=== PATIENT | female | born 1935 | race Caucasian/White ===

== ENCOUNTER 2019-06-21 22:11 | Inpatient (IN) ==
[2019-06-22] MEDS ORDERED: Ondansetron ODT 4 MG TAB.RAPDIS SL PRN (03:27)
[2019-06-22] MEDS ORDERED: Naloxone 0.4 MG/ML INJ IVP PRN (03:27)
[2019-06-22] MEDS ORDERED: 0.9 % Sodium Chloride 500 ML IVC SCH (03:45)
[2019-06-22 04:15] LABS: Hematocrit 33.8 % (35.3-44.9); Hemoglobin 11.4 g/dL (11.5-15.4); Mean Corpuscular HGB Conc 33.7 g/dL (31.6-35.5); Mean Corpuscular Hemoglobin 27.7 pg (28.0-33.3); Mean Corpuscular Volume 82.2 fL (83.0-100.0); Mean Platelet Volume 11.2 fL (9.4-12.4); Nucleated Red Blood Cells 0.2 /100 WBC (0); Platelet Count 251 K/mcL (140-400); Red Blood Count 4.11 M/mcL (3.82-4.97); Red Cell Distribution Width 14.5 % (11.5-14.5); White Blood Count 18.6 K/mcL (4.3-11.1)
[2019-06-22 04:37] LABS: Albumin 2.7 g/dL (3.5-5.7); Albumin/Globulin Ratio 0.8 (1.1-2.2); Calcium 7.7 mg/dL (8.6-10.3); Globulin 3.6 g/dL (2.4-3.5); Magnesium 2.2 mg/dL (1.6-2.6); Phosphorous 4.7 mg/dL (2.7-4.5); Potassium 4.4 mEq/L (3.5-5.1); Total Protein 6.3 g/dL (6.4-8.9)
[2019-06-22 04:49] LABS: C-Reactive Protein > 300 mg/L (Less than 10); Creatine Kinase 2271 Units/L (30-223)
[2019-06-22 04:54] LABS: Thyroid Stimulating Hormone 0.563 mcIU/mL (0.340-5.600)
[2019-06-22 05:23] LABS: Lymphocytes # 1.1 K/mcL (0.6-4.6); Neutrophils # 17.5 K/mcL (1.6-8.9); Platelet Estimate Normal (Normal)
[2019-06-22] MEDS ORDERED: Cefepime HCl 2,000 MG in Water for inj. (sterile) 20 ML IVP SCH (06:00)
[2019-06-22 09:40] LABS: Sodium, Urine 15.4 mEq/L
[2019-06-22 09:59] LABS: Bilirubin,Urine Small (Negative); Blood,Urine Large (Negative); Clarity,Urine Cloudy (Clear); Color,Urine Yellow (Yellow); Glucose,Urine (UA) Normal (Normal); Ketones,Urine Negative (Negative); Leukocyte Esterase,Urine Moderate (Negative); Nitrite,Urine Negative (Negative); Protein,Urine 100 mg/dL (Neg-Trace); Specific Gravity,Urine 1.025 (1.010-1.025); Urobilinogen,Urine Normal (Normal)
[2019-06-22 10:00] LABS: Hematocrit 34.6 % (35.3-44.9); Hemoglobin 11.2 g/dL (11.5-15.4); Mean Corpuscular HGB Conc 32.4 g/dL (31.6-35.5); Mean Corpuscular Hemoglobin 27.7 pg (28.0-33.3); Mean Corpuscular Volume 85.6 fL (83.0-100.0); Mean Platelet Volume 11.3 fL (9.4-12.4); Platelet Count 233 K/mcL (140-400); Red Blood Count 4.04 M/mcL (3.82-4.97); Red Cell Distribution Width 14.2 % (11.5-14.5); White Blood Count 15.9 K/mcL (4.3-11.1)
[2019-06-22 10:01] LABS: Bacteria,Urine None Seen per hpf (None-Few); Hyaline Casts,Urine Few per lpf (None-Few); Squamous Epithelial Cell,Urine Many per lpf (None-Few); WBC,Urine 50-100 per hpf (0-3)
[2019-06-22 10:29] LABS: Monocytes # 0.6 K/mcL (0.0-1.3); Neutrophils # 14.3 K/mcL (1.6-8.9); Platelet Estimate Normal (Normal)
[2019-06-22 10:30] LABS: Albumin 2.6 g/dL (3.5-5.7); Albumin/Globulin Ratio 0.7 (1.1-2.2); Bilirubin,Total 1.9 mg/dL (0.3-1.0); Calcium 7.7 mg/dL (8.6-10.3); Globulin 3.6 g/dL (2.4-3.5); Magnesium 2.2 mg/dL (1.6-2.6); Phosphorous 5.1 mg/dL (2.7-4.5); Potassium 4.8 mEq/L (3.5-5.1); Total Protein 6.2 g/dL (6.4-8.9); Troponin I 0.05 ng/mL (< 0.04)
[2019-06-22 11:30] LABS: INR > 29.6; Prothrombin Time > 320.0 Seconds (9.4-12.1)
[2019-06-22] MEDS ORDERED: *HR* Phytonadione 10 MG/ML AMPUL SQ ONE (12:24)
[2019-06-22] MEDS: 0.9 % Sodium Chloride 1,000 ML IVC SCH (13:21)
[2019-06-22] MEDS: Morphine Sulfate 2 MG/ML SYRINGE IVP PRN ×2 (14:44→18:51)
[2019-06-23] MEDS: 0.9 % Sodium Chloride 1,000 ML IVC SCH ×2 (01:41→11:45)
[2019-06-23] MEDS: Morphine Sulfate 2 MG/ML SYRINGE IVP PRN ×4 (01:41→23:08)
[2019-06-23] MEDS: Cefepime HCl 1,000 MG in Water for inj. (sterile) 10 ML IVP SCH ×2 (05:35→08:24)
[2019-06-23 06:10] LABS: Hematocrit 30.8 % (35.3-44.9); Hemoglobin 10.4 g/dL (11.5-15.4); Mean Corpuscular HGB Conc 33.8 g/dL (31.6-35.5); Mean Corpuscular Hemoglobin 27.8 pg (28.0-33.3); Mean Corpuscular Volume 82.4 fL (83.0-100.0); Mean Platelet Volume 11.4 fL (9.4-12.4); Nucleated Red Blood Cells 0.2 /100 WBC (0); Platelet Count 232 K/mcL (140-400); Red Blood Count 3.74 M/mcL (3.82-4.97); Red Cell Distribution Width 14.6 % (11.5-14.5); White Blood Count 16.3 K/mcL (4.3-11.1)
[2019-06-23 06:12] LABS: INR 2.9; Prothrombin Time 32.8 Seconds (9.4-12.1)
[2019-06-23 06:34] LABS: Albumin 2.3 g/dL (3.5-5.7); Albumin/Globulin Ratio 0.7 (1.1-2.2); Bilirubin,Total 1.3 mg/dL (0.3-1.0); Calcium 7.4 mg/dL (8.6-10.3); Globulin 3.5 g/dL (2.4-3.5); Magnesium 2.4 mg/dL (1.6-2.6); Phosphorous 4.5 mg/dL (2.7-4.5); Potassium 4.5 mEq/L (3.5-5.1); Total Protein 5.8 g/dL (6.4-8.9)
[2019-06-23 06:49] LABS: Lymphocytes # 0.7 K/mcL (0.6-4.6); Neutrophils # 14.7 K/mcL (1.6-8.9)
[2019-06-23 06:50] LABS: Platelet Estimate Normal (Normal)
[2019-06-23] MEDS ORDERED: Perflutren Lipid Microsphere 1.3 ML in 0.9 % Sodium Chloride 8.7 ML IVP ONE (15:26)
[2019-06-24] MEDS: Morphine Sulfate 2 MG/ML SYRINGE IVP PRN (04:09)
[2019-06-24] MEDS: 0.9 % Sodium Chloride 1,000 ML IVC SCH ×2 (04:13→05:38)
[2019-06-24 04:29] LABS: Hematocrit 31.4 % (35.3-44.9); Hemoglobin 10.2 g/dL (11.5-15.4); Mean Corpuscular HGB Conc 32.5 g/dL (31.6-35.5); Mean Corpuscular Hemoglobin 27.6 pg (28.0-33.3); Mean Corpuscular Volume 85.1 fL (83.0-100.0); Mean Platelet Volume 11.3 fL (9.4-12.4); Nucleated Red Blood Cells 0.3 /100 WBC (0); Platelet Count 236 K/mcL (140-400); Red Blood Count 3.69 M/mcL (3.82-4.97); Red Cell Distribution Width 14.6 % (11.5-14.5); White Blood Count 19.8 K/mcL (4.3-11.1)
[2019-06-24 04:33] LABS: INR 1.2
[2019-06-24 04:46] LABS: Albumin 2.5 g/dL (3.5-5.7); Albumin/Globulin Ratio 0.7 (1.1-2.2); Bilirubin,Total 1.2 mg/dL (0.3-1.0); Calcium 8.1 mg/dL (8.6-10.3); Globulin 3.5 g/dL (2.4-3.5); Magnesium 2.3 mg/dL (1.6-2.6); Potassium 4.3 mEq/L (3.5-5.1)
[2019-06-24 05:28] LABS: Neutrophils # 17.8 K/mcL (1.6-8.9)
[2019-06-24 05:29] LABS: Platelet Estimate Normal (Normal); Toxic Granulation Present (Not Present)
[2019-06-24] MEDS ORDERED: Aminoglycoside Consult 1 EACH MC ONE (08:41)
[2019-06-24] MEDS ORDERED: Ampicillin/Sulbactam 3,000 MG in 0.9 % Sodium Chloride Mini Bag 100 ML IVPB SCH (12:00)
[2019-06-24] MEDS ORDERED: Cefepime HCl 1,000 MG in Water for inj. (sterile) 10 ML IVP SCH (16:00)
[2019-06-24] MEDS: *HR* HYDROcodone/Acet 5/325 mg TABLET PO PRN (17:18)
[2019-06-24] MEDS ORDERED: *HR* Warfarin 3 MG TABLET PO ONE (18:00)
[2019-06-24] MEDS ORDERED: Warfarin perPT PO PRN (18:00)
[2019-06-24] MEDS: Ampicillin/Sulbactam 3,000 MG in 0.9 % Sodium Chloride Mini Bag 100 ML IVPB SCH (23:57)
[2019-06-25 07:02] LABS: Hematocrit 31.3 % (35.3-44.9); Mean Corpuscular HGB Conc 31.9 g/dL (31.6-35.5); Mean Corpuscular Hemoglobin 27.5 pg (28.0-33.3); Mean Corpuscular Volume 86.2 fL (83.0-100.0); Mean Platelet Volume 11.2 fL (9.4-12.4); Nucleated Red Blood Cells 0.1 /100 WBC (0); Platelet Count 261 K/mcL (140-400); Red Blood Count 3.63 M/mcL (3.82-4.97); Red Cell Distribution Width 14.6 % (11.5-14.5); White Blood Count 23.9 K/mcL (4.3-11.1)
[2019-06-25 07:33] LABS: Calcium 9.2 mg/dL (8.6-10.3); Potassium 3.8 mEq/L (3.5-5.1)
[2019-06-25 07:48] LABS: INR 1.4; Prothrombin Time 15.5 Seconds (9.4-12.1)
[2019-06-25 08:53] LABS: Anisocytosis 1+ (Not Present); Monocytes # 1.4 K/mcL (0.0-1.3); Neutrophils # 20.6 K/mcL (1.6-8.9); Platelet Estimate Normal (Normal)
[2019-06-25] MEDS: *HR* HYDROcodone/Acet 5/325 mg TABLET PO PRN ×2 (09:16→20:23)
[2019-06-25] MEDS: Ampicillin/Sulbactam 3,000 MG in 0.9 % Sodium Chloride Mini Bag 100 ML IVPB SCH (11:50)
[2019-06-25 17:26] LABS: Albumin 2.4 g/dL (3.5-5.7); Albumin/Globulin Ratio 0.6 (1.1-2.2); Bilirubin,Direct 0.5 mg/dL (0.0-0.2); Bilirubin,Indirect 0.6 mg/dL (0.0-1.0); Bilirubin,Total 1.1 mg/dL (0.3-1.0); Globulin 3.7 g/dL (2.4-3.5); Total Protein 6.1 g/dL (6.4-8.9)
[2019-06-25] MEDS ORDERED: *HR* Warfarin 3 MG TABLET PO ONE (18:00)
[2019-06-26] MEDS: *HR* HYDROcodone/Acet 5/325 mg TABLET PO PRN ×2 (04:42→20:36)
[2019-06-26] MEDS: Ampicillin/Sulbactam 3,000 MG in 0.9 % Sodium Chloride Mini Bag 100 ML IVPB SCH (05:09)
[2019-06-26 07:23] LABS: Hematocrit 29.9 % (35.3-44.9); Mean Corpuscular HGB Conc 33.4 g/dL (31.6-35.5); Mean Corpuscular Hemoglobin 27.6 pg (28.0-33.3); Mean Corpuscular Volume 82.6 fL (83.0-100.0); Mean Platelet Volume 11.4 fL (9.4-12.4); Platelet Count 249 K/mcL (140-400); Red Blood Count 3.62 M/mcL (3.82-4.97); Red Cell Distribution Width 14.7 % (11.5-14.5); White Blood Count 22.4 K/mcL (4.3-11.1)
[2019-06-26 07:27] LABS: INR 1.8; Prothrombin Time 20.8 Seconds (9.4-12.1)
[2019-06-26 08:05] LABS: Lymphocytes # 1.3 K/mcL (0.6-4.6); Monocytes # 0.5 K/mcL (0.0-1.3); Neutrophils # 19.3 K/mcL (1.6-8.9); Platelet Estimate Normal (Normal); Toxic Granulation Present (Not Present)
[2019-06-26 08:21] LABS: Alanine Aminotransferase 21 Units/L (7-52); Albumin 2.2 g/dL (3.5-5.7); Albumin/Globulin Ratio 0.6 (1.1-2.2); Alkaline Phosphatase 130 Units/L (34-104); Aspartate Amino Transferase 36 Units/L (13-39); BUN/Creatinine Ratio 44 (6-26); Blood Urea Nitrogen 45 mg/dL (8-23); Carbon Dioxide 24 mEq/L (23-29); Chloride 102 mEq/L (98-107); Globulin 3.5 g/dL (2.4-3.5); Glucose 121 mg/dL (70-105); Osmolality,Calculated 291 (280-300); Potassium 4.1 mEq/L (3.5-5.1); Sodium 134 mEq/L (136-145); Total Protein 5.7 g/dL (6.4-8.9); eGFR For African Americans > 60 (> 60); eGFR For Non-African Americans 51 (> 60)
[2019-06-26] MEDS ORDERED: *HR* Propofol 200 MG/20 ML VIAL IVP ONE (11:36)
[2019-06-26] MEDS ORDERED: *HR* FentaNYL (PF) 100 MCG/2 ML VIAL ONE (11:36)
[2019-06-26] MEDS ORDERED: Lidocaine -MPF 2% 2 ML VIAL ONE (11:37)
[2019-06-26] MEDS ORDERED: *HR* Succinylcholine 200 MG/10 ML VIAL IVP ONE (11:37)
[2019-06-26] MEDS ORDERED: Dexamethasone 4 MG/ML VIAL ONE (12:22)
[2019-06-26] MEDS ORDERED: *HR* Rocuronium Bromide 50 MG/5 ML VIAL ONE (12:22)
[2019-06-26] MEDS ORDERED: Ondansetron 4 MG/2 ML VIAL ONE (12:22)
[2019-06-26] MEDS ORDERED: Indomethacin 50 MG SUPP.RECT RC ONE (12:34)
[2019-06-26] MEDS ORDERED: EPHEDrine 50 MG/ML VIAL ONE (12:35)
[2019-06-26] MEDS: cefTRIAXone 2,000 MG in 0.9 % Sodium Chloride Mini Bag 100 ML IVPB SCH (15:33)
[2019-06-26] MEDS ORDERED: Ampicillin/Sulbactam 3,000 MG in 0.9 % Sodium Chloride Mini Bag 100 ML IVPB SCH (17:00)
[2019-06-26] MEDS ORDERED: *HR* Warfarin 2 MG TABLET PO ONE (18:00)
[2019-06-26] MEDS: Doxycycline 100 MG CAPSULE PO SCH (20:34)
[2019-06-27 02:29] LABS: Prothrombin Time 23.2 Seconds (9.4-12.1)
[2019-06-27 03:56] LABS: Basophils # 0.1 K/mcL (0.0-0.2); Basophils % 0.6 %; Hematocrit 30.7 % (35.3-44.9); Hemoglobin 9.9 g/dL (11.5-15.4); Immature Granulocytes % 11.2 % (0-4); Lymphocytes # 0.8 K/mcL (0.6-4.6); Lymphocytes % 3.7 %; Mean Corpuscular HGB Conc 32.2 g/dL (31.6-35.5); Mean Corpuscular Hemoglobin 27.4 pg (28.0-33.3); Mean Platelet Volume 11.4 fL (9.4-12.4); Monocytes # 0.6 K/mcL (0.0-1.3); Neutrophils # 16.8 K/mcL (1.6-8.9); Platelet Count 227 K/mcL (140-400); Red Blood Count 3.61 M/mcL (3.82-4.97); Red Cell Distribution Width 14.8 % (11.5-14.5); Segmented Neutrophils % 81.5 %; White Blood Count 20.6 K/mcL (4.3-11.1)
[2019-06-27 04:37] LABS: Platelet Estimate Normal (Normal)
[2019-06-27] MEDS: *HR* HYDROcodone/Acet 5/325 mg TABLET PO PRN ×2 (05:29→14:20)
[2019-06-27] MEDS: Doxycycline 100 MG CAPSULE PO SCH ×2 (09:40→20:35)
[2019-06-27] MEDS: cefTRIAXone 2,000 MG in 0.9 % Sodium Chloride Mini Bag 100 ML IVPB SCH (11:02)
[2019-06-27] MEDS: carvediloL 6.25 MG TABLET PO SCH (17:11)
[2019-06-27] MEDS ORDERED: *HR* Warfarin 3 MG TABLET PO ONE (18:00)
[2019-06-28 09:06] LABS: Hematocrit 34.4 % (35.3-44.9); Hemoglobin 11.1 g/dL (11.5-15.4); Mean Corpuscular HGB Conc 32.3 g/dL (31.6-35.5); Mean Corpuscular Hemoglobin 27.3 pg (28.0-33.3); Mean Corpuscular Volume 84.7 fL (83.0-100.0); Mean Platelet Volume 11.5 fL (9.4-12.4); Platelet Count 269 K/mcL (140-400); Red Blood Count 4.06 M/mcL (3.82-4.97); Red Cell Distribution Width 14.7 % (11.5-14.5); White Blood Count 23.4 K/mcL (4.3-11.1)
[2019-06-28 09:14] LABS: INR 2.2; Prothrombin Time 25.5 Seconds (9.4-12.1)
[2019-06-28 09:35] LABS: Lymphocytes # 1.4 K/mcL (0.6-4.6); Monocytes # 0.9 K/mcL (0.0-1.3); Neutrophils # 20.6 K/mcL (1.6-8.9)
[2019-06-28 09:37] LABS: Platelet Estimate Normal (Normal); Smudge Cells Present (Not Present); Toxic Granulation Present (Not Present)
[2019-06-28] MEDS ORDERED: CefTRIAXone 2,000 MG VIAL ONE (10:19)
[2019-06-28] MEDS: carvediloL 6.25 MG TABLET PO SCH ×2 (10:31→18:49)
[2019-06-28] MEDS: cefTRIAXone 2,000 MG in 0.9 % Sodium Chloride Mini Bag 100 ML IVPB SCH (10:31)
[2019-06-28] MEDS: *HR* HYDROcodone/Acet 5/325 mg TABLET PO PRN ×2 (10:31→15:03)
[2019-06-28] MEDS: Doxycycline 100 MG CAPSULE PO SCH ×2 (10:31→21:43)
[2019-06-28 12:05] LABS: Bilirubin,Urine Negative (Negative); Blood,Urine Negative (Negative); Clarity,Urine Cloudy (Clear); Color,Urine Dark Yellow (Yellow); Glucose,Urine (UA) Normal (Normal); Ketones,Urine Negative (Negative); Leukocyte Esterase,Urine Small (Negative); Nitrite,Urine Negative (Negative); PH,Urine 5.5 pH Units (5.0-8.0); Protein,Urine 30 mg/dL (Neg-Trace); Urobilinogen,Urine Normal (Normal)
[2019-06-28 12:08] LABS: Bacteria,Urine None Seen per hpf (None-Few); Squamous Epithelial Cell,Urine Many per lpf (None-Few)
[2019-06-28] MEDS ORDERED: Ondansetron 4 MG/2 ML VIAL IVP PRN (13:08)
[2019-06-28] MEDS ORDERED: *HR* Promethazine 25 MG/ML VIAL IVP PRN (13:09)
[2019-06-28] MEDS ORDERED: *HR* Warfarin 1 MG TABLET PO ONE (18:00)
[2019-06-28] MEDS: Pantoprazole 40 MG VIAL IVP SCH (21:43)
[2019-06-29 03:09] LABS: Hematocrit 33.8 % (35.3-44.9); Mean Corpuscular HGB Conc 32.5 g/dL (31.6-35.5); Mean Corpuscular Hemoglobin 27.4 pg (28.0-33.3); Mean Corpuscular Volume 84.1 fL (83.0-100.0); Mean Platelet Volume 11.6 fL (9.4-12.4); Nucleated Red Blood Cells 0.1 /100 WBC (0); Platelet Count 245 K/mcL (140-400); Red Blood Count 4.02 M/mcL (3.82-4.97); Red Cell Distribution Width 14.7 % (11.5-14.5); White Blood Count 23.3 K/mcL (4.3-11.1)
[2019-06-29 03:16] LABS: INR 2.3; Prothrombin Time 26.3 Seconds (9.4-12.1)
[2019-06-29 03:31] LABS: BUN/Creatinine Ratio 51 (6-26); Blood Urea Nitrogen 53 mg/dL (8-23); C-Reactive Protein 87 mg/L (Less than 10); Calcium 9.5 mg/dL (8.6-10.3); Carbon Dioxide 22 mEq/L (23-29); Chloride 104 mEq/L (98-107); Glucose 140 mg/dL (70-105); Magnesium 1.7 mg/dL (1.6-2.6); Osmolality,Calculated 297 (280-300); Potassium 4.7 mEq/L (3.5-5.1); Sodium 135 mEq/L (136-145); eGFR For African Americans > 60 (> 60); eGFR For Non-African Americans 51 (> 60)
[2019-06-29 03:35] LABS: Anisocytosis 1+ (Not Present); Lymphocytes # 0.9 K/mcL (0.6-4.6); Monocytes # 0.5 K/mcL (0.0-1.3)
[2019-06-29 03:36] LABS: Platelet Estimate Normal (Normal)
[2019-06-29] MEDS: Pantoprazole 40 MG VIAL IVP SCH (05:38)
[2019-06-29] MEDS: Doxycycline 100 MG CAPSULE PO SCH ×2 (08:00→20:49)
[2019-06-29] MEDS: carvediloL 6.25 MG TABLET PO SCH ×2 (08:00→19:46)
[2019-06-29] MEDS ORDERED: Milk and Molasses Enema 200 ML RC ONE (08:14)
[2019-06-29] MEDS: cefTRIAXone 2,000 MG in 0.9 % Sodium Chloride Mini Bag 100 ML IVPB SCH (12:23)
[2019-06-29] MEDS: 0.9 % Sodium Chloride 1,000 ML IVC SCH (12:24)
[2019-06-29] MEDS ORDERED: *HR* Warfarin 1 MG TABLET PO ONE (18:00)
[2019-06-30] MEDS: Piperacillin/Tazobactam 3.375 GM in 0.9 % Sodium Chloride Mini Bag 100 ML IVPB SCH ×4 (02:00→23:39)
[2019-06-30 04:59] LABS: Hematocrit 28.8 % (35.3-44.9); Mean Corpuscular HGB Conc 31.3 g/dL (31.6-35.5); Mean Corpuscular Hemoglobin 27.5 pg (28.0-33.3); Mean Corpuscular Volume 88.1 fL (83.0-100.0); Mean Platelet Volume 12.1 fL (9.4-12.4); Nucleated Red Blood Cells 0.1 /100 WBC (0); Platelet Count 182 K/mcL (140-400); Red Blood Count 3.27 M/mcL (3.82-4.97); Red Cell Distribution Width 14.8 % (11.5-14.5); White Blood Count 17.8 K/mcL (4.3-11.1)
[2019-06-30 05:06] LABS: INR 2.9; Prothrombin Time 32.9 Seconds (9.4-12.1)
[2019-06-30 05:19] LABS: Albumin 2.2 g/dL (3.5-5.7); Albumin/Globulin Ratio 0.7 (1.1-2.2); Bilirubin,Total 0.5 mg/dL (0.3-1.0); Calcium 8.5 mg/dL (8.6-10.3); Potassium 4.2 mEq/L (3.5-5.1); Total Protein 5.2 g/dL (6.4-8.9)
[2019-06-30 05:42] LABS: Lymphocytes # 0.4 K/mcL (0.6-4.6); Monocytes # 1.4 K/mcL (0.0-1.3); Neutrophils # 15.3 K/mcL (1.6-8.9); Platelet Estimate Normal (Normal); Toxic Granulation Present (Not Present)
[2019-06-30] MEDS: Pantoprazole 40 MG VIAL IVP SCH ×2 (07:46→17:42)
[2019-06-30] MEDS: 0.9 % Sodium Chloride 1,000 ML IVC SCH (07:47)
[2019-06-30] MEDS: carvediloL 6.25 MG TABLET PO SCH ×2 (08:42→17:42)
[2019-06-30] MEDS: Doxycycline 100 MG CAPSULE PO SCH ×2 (08:42→21:57)
[2019-06-30] MEDS ORDERED: Morphine Sulfate 2 MG/ML SYRINGE IVP ONE (12:02)
[2019-07-01 05:48] LABS: Basophils % 0.2 %; Eosinophils # 0.1 K/mcL (0.0-0.6); Eosinophils % 0.6 %; Hematocrit 26.4 % (35.3-44.9); Hemoglobin 8.2 g/dL (11.5-15.4); Immature Granulocytes % 4.5 % (0-4); Lymphocytes # 0.8 K/mcL (0.6-4.6); Lymphocytes % 5.3 %; Mean Corpuscular HGB Conc 31.1 g/dL (31.6-35.5); Mean Corpuscular Hemoglobin 27.8 pg (28.0-33.3); Mean Corpuscular Volume 89.5 fL (83.0-100.0); Mean Platelet Volume 12.2 fL (9.4-12.4); Monocytes # 0.7 K/mcL (0.0-1.3); Monocytes % 4.4 %; Neutrophils # 12.8 K/mcL (1.6-8.9); Platelet Count 158 K/mcL (140-400); Red Blood Count 2.95 M/mcL (3.82-4.97); Red Cell Distribution Width 14.9 % (11.5-14.5)
[2019-07-01 05:52] LABS: INR 3.3; Prothrombin Time 37.3 Seconds (9.4-12.1)
[2019-07-01 06:11] LABS: Alanine Aminotransferase 18 Units/L (7-52); Albumin 2.1 g/dL (3.5-5.7); Albumin/Globulin Ratio 0.8 (1.1-2.2); Alkaline Phosphatase 139 Units/L (34-104); Aspartate Amino Transferase 24 Units/L (13-39); BUN/Creatinine Ratio 46 (6-26); Bilirubin,Total 0.6 mg/dL (0.3-1.0); Blood Urea Nitrogen 49 mg/dL (8-23); Carbon Dioxide 23 mEq/L (23-29); Chloride 110 mEq/L (98-107); Globulin 2.7 g/dL (2.4-3.5); Glucose 122 mg/dL (70-105); Magnesium 1.6 mg/dL (1.6-2.6); Osmolality,Calculated 300 (280-300); Potassium 3.9 mEq/L (3.5-5.1); Sodium 138 mEq/L (136-145); Total Protein 4.8 g/dL (6.4-8.9); eGFR For African Americans > 60 (> 60); eGFR For Non-African Americans 50 (> 60)
[2019-07-01] MEDS: Pantoprazole 40 MG VIAL IVP SCH ×2 (06:20→17:50)
[2019-07-01] MEDS: Doxycycline 100 MG CAPSULE PO SCH ×2 (08:59→20:28)
[2019-07-01] MEDS: Piperacillin/Tazobactam 3.375 GM in 0.9 % Sodium Chloride Mini Bag 100 ML IVPB SCH ×3 (08:59→23:19)
[2019-07-01] MEDS: carvediloL 6.25 MG TABLET PO SCH ×2 (08:59→17:50)
[2019-07-01] MEDS: *HR* HYDROcodone/Acet 5/325 mg TABLET PO PRN ×2 (13:22→20:28)
[2019-07-02] MEDS: *HR* HYDROcodone/Acet 5/325 mg TABLET PO PRN ×3 (01:25→21:12)
[2019-07-02 04:27] LABS: Calcium 8.1 mg/dL (8.6-10.3); Potassium 4.3 mEq/L (3.5-5.1)
[2019-07-02 04:46] LABS: Basophils % 0.1 %; Eosinophils # 0.1 K/mcL (0.0-0.6); Eosinophils % 0.5 %; Hematocrit 27.1 % (35.3-44.9); Hemoglobin 8.6 g/dL (11.5-15.4); Lymphocytes # 0.7 K/mcL (0.6-4.6); Lymphocytes % 5.2 %; Mean Corpuscular HGB Conc 31.7 g/dL (31.6-35.5); Mean Corpuscular Hemoglobin 28.7 pg (28.0-33.3); Mean Corpuscular Volume 90.3 fL (83.0-100.0); Mean Platelet Volume 11.5 fL (9.4-12.4); Monocytes # 0.7 K/mcL (0.0-1.3); Monocytes % 5.4 %; Neutrophils # 11.6 K/mcL (1.6-8.9); Platelet Count 145 K/mcL (140-400); Red Cell Distribution Width 15.3 % (11.5-14.5); Segmented Neutrophils % 86.8 %; White Blood Count 13.4 K/mcL (4.3-11.1)
[2019-07-02 04:49] LABS: INR 3.7; Prothrombin Time 41.7 Seconds (9.4-12.1)
[2019-07-02] MEDS: Pantoprazole 40 MG VIAL IVP SCH (05:19)
[2019-07-02] MEDS: Piperacillin/Tazobactam 3.375 GM in 0.9 % Sodium Chloride Mini Bag 100 ML IVPB SCH ×3 (07:32→23:46)
[2019-07-02] MEDS: Doxycycline 100 MG CAPSULE PO SCH ×2 (07:33→21:12)
[2019-07-02] MEDS: carvediloL 6.25 MG TABLET PO SCH ×2 (07:33→16:48)
[2019-07-03] MEDS: *HR* HYDROcodone/Acet 5/325 mg TABLET PO PRN ×2 (01:14→13:55)
[2019-07-03 06:05] LABS: Basophils % 0.1 %; Eosinophils # 0.1 K/mcL (0.0-0.6); Eosinophils % 0.4 %; Hematocrit 28.2 % (35.3-44.9); Hemoglobin 8.7 g/dL (11.5-15.4); Immature Granulocytes % 0.9 % (0-4); Lymphocytes # 0.7 K/mcL (0.6-4.6); Lymphocytes % 4.8 %; Mean Corpuscular HGB Conc 30.9 g/dL (31.6-35.5); Mean Corpuscular Volume 90.7 fL (83.0-100.0); Mean Platelet Volume 12.1 fL (9.4-12.4); Monocytes # 0.5 K/mcL (0.0-1.3); Monocytes % 3.6 %; Neutrophils # 13.4 K/mcL (1.6-8.9); Platelet Count 141 K/mcL (140-400); Red Blood Count 3.11 M/mcL (3.82-4.97); Red Cell Distribution Width 15.4 % (11.5-14.5); Segmented Neutrophils % 90.2 %; White Blood Count 14.9 K/mcL (4.3-11.1)
[2019-07-03 06:10] LABS: INR 2.8; Prothrombin Time 32.3 Seconds (9.4-12.1)
[2019-07-03 06:29] LABS: Calcium 8.2 mg/dL (8.6-10.3); Potassium 4.6 mEq/L (3.5-5.1)
[2019-07-03] MEDS: Piperacillin/Tazobactam 3.375 GM in 0.9 % Sodium Chloride Mini Bag 100 ML IVPB SCH (09:04)
[2019-07-03] MEDS: Doxycycline 100 MG CAPSULE PO SCH (09:04)
[2019-07-03] MEDS: carvediloL 6.25 MG TABLET PO SCH (09:04)
[2019-07-03 15:20] VITALS: BP 113/61
[2019-07-03] MEDS ORDERED: *HR* Warfarin 1 MG TABLET PO ONE (18:00)
== END 2019-07-03 17:32 | DRG 871 ==
LOC: CDU → SUATTDRO 06-22 13:33 → 3ANU 06-23 15:42
PROVIDERS: ADMIT Family Medicine; ATTEND Internal Medicine

== ENCOUNTER 2019-07-16 14:12 | Inpatient (IN) ==
[2019-07-16] MEDS ORDERED: Naloxone 0.4 MG/ML INJ IVP PRN (17:02)
[2019-07-16] MEDS ORDERED: Acetaminophen 325 MG TABLET PO PRN (18:08)
[2019-07-16] MEDS ORDERED: Albuterol 2.5 MG/3 ML NEBULIZER IH PRN (18:28)
[2019-07-16] MEDS: Ipratropium/Albuterol Neb 3 ML IH SCH ×2 (18:32→22:34)
[2019-07-16] MEDS: *HR* OxyCODONE Immed Rel 5 MG TABLET PO PRN ×2 (19:17→23:13)
[2019-07-16] MEDS: *HR* Heparin 5,000 UNIT/ML VIAL SQ SCH (20:52)
[2019-07-17] MEDS: Ipratropium/Albuterol Neb 3 ML IH SCH ×4 (04:07→22:17)
[2019-07-17] MEDS: *HR* Heparin 5,000 UNIT/ML VIAL SQ SCH ×2 (05:50→17:05)
[2019-07-17 05:58] LABS: Basophils % 0.2 %; Hematocrit 26.2 % (35.3-44.9); Hemoglobin 7.7 g/dL (11.5-15.4); Immature Granulocytes % 6.1 % (0-4); Lymphocytes # 0.5 K/mcL (0.6-4.6); Lymphocytes % 3.5 %; Mean Corpuscular HGB Conc 29.4 g/dL (31.6-35.5); Mean Corpuscular Hemoglobin 27.3 pg (28.0-33.3); Mean Corpuscular Volume 92.9 fL (83.0-100.0); Mean Platelet Volume 11.3 fL (9.4-12.4); Monocytes # 0.7 K/mcL (0.0-1.3); Monocytes % 4.8 %; Neutrophils # 11.7 K/mcL (1.6-8.9); Platelet Count 180 K/mcL (140-400); Red Blood Count 2.82 M/mcL (3.82-4.97); Red Cell Distribution Width 15.5 % (11.5-14.5); Segmented Neutrophils % 85.4 %; White Blood Count 13.7 K/mcL (4.3-11.1)
[2019-07-17] MEDS ORDERED: *HR* Heparin 5,000 UNIT/ML VIAL SQ SCH (06:00)
[2019-07-17 06:20] LABS: BUN/Creatinine Ratio 39 (6-26); Blood Urea Nitrogen 36 mg/dL (8-23); Calcium 8.1 mg/dL (8.6-10.3); Carbon Dioxide 33 mEq/L (23-29); Chloride 103 mEq/L (98-107); Glucose 135 mg/dL (70-105); Magnesium 2.1 mg/dL (1.6-2.6); Osmolality,Calculated 304 (280-300); Potassium 3.9 mEq/L (3.5-5.1); Sodium 142 mEq/L (136-145); eGFR For African Americans > 60 (> 60); eGFR For Non-African Americans 58 (> 60)
[2019-07-17 06:24] LABS: % Iron Saturation 29 % (15-50); Iron 40 mcg/dL (50-170); Transferrin 100 mg/dL (203-362)
[2019-07-17 06:26] LABS: Platelet Estimate Decreased (Normal)
[2019-07-17 06:39] LABS: Ferritin 594 ng/mL (10-120)
[2019-07-17 06:45] LABS: Folate 5.2 ng/mL (3.0-16.0)
[2019-07-17] MEDS ORDERED: *HR* HYDROcodone/Acet 5/325 mg TABLET PO PRN (12:21)
[2019-07-17] MEDS ORDERED: MOM Conc 10 ML UD.LIQ PO PRN (12:21)
[2019-07-17] MEDS: Nystatin SUSP 5 ML UD.LIQ PO SCH ×3 (15:43→21:41)
[2019-07-17] MEDS ORDERED: [UNRECOGNIZED DRUG - OTHER] PO SCH (21:00)
[2019-07-17] MEDS ORDERED: AMINO ACIDS PO SCH (21:00)
[2019-07-17] MEDS ORDERED: PROTEIN HYDROLYS PO SCH (21:00)
[2019-07-17] MEDS ORDERED: Mirtazapine 15 MG TABLET PO SCH (21:00)
[2019-07-18] MEDS: Ipratropium/Albuterol Neb 3 ML IH SCH ×2 (03:40→11:08)
[2019-07-18 04:47] LABS: Hemoglobin 8.3 g/dL (11.5-15.4); Mean Corpuscular HGB Conc 29.6 g/dL (31.6-35.5); Mean Corpuscular Hemoglobin 27.8 pg (28.0-33.3); Mean Corpuscular Volume 93.6 fL (83.0-100.0); Mean Platelet Volume 10.7 fL (9.4-12.4); Nucleated Red Blood Cells 0.1 /100 WBC (0); Platelet Count 190 K/mcL (140-400); Red Blood Count 2.99 M/mcL (3.82-4.97); Red Cell Distribution Width 15.6 % (11.5-14.5); White Blood Count 13.5 K/mcL (4.3-11.1)
[2019-07-18 05:09] LABS: BUN/Creatinine Ratio 43 (6-26); Blood Urea Nitrogen 33 mg/dL (8-23); Calcium 8.3 mg/dL (8.6-10.3); Carbon Dioxide 32 mEq/L (23-29); Chloride 103 mEq/L (98-107); Glucose 103 mg/dL (70-105); Osmolality,Calculated 300 (280-300); Phosphorous 2.6 mg/dL (2.7-4.5); Potassium 4.7 mEq/L (3.5-5.1); Sodium 141 mEq/L (136-145); eGFR For African Americans > 60 (> 60); eGFR For Non-African Americans > 60 (> 60)
[2019-07-18 05:52] LABS: Lymphocytes # 1.1 K/mcL (0.6-4.6); Monocytes # 0.5 K/mcL (0.0-1.3); Neutrophils # 11.9 K/mcL (1.6-8.9); Platelet Estimate Normal (Normal)
[2019-07-18 05:53] LABS: Basophilic Stippling 1+ (Not Present)
[2019-07-18] MEDS: *HR* Heparin 5,000 UNIT/ML VIAL SQ SCH (06:00)
[2019-07-18] MEDS ORDERED: Multivit/Ca/Min/Fe/FA 1 TAB TABLET PO SCH (09:00)
[2019-07-18] MEDS ORDERED: Sennosides/Docusate Sodium TABLET PO SCH (09:00)
[2019-07-18] MEDS ORDERED: Zinc Sulfate 220 MG CAPSULE PO SCH (09:00)
[2019-07-18] MEDS ORDERED: Furosemide 20 MG TABLET PO SCH (09:00)
[2019-07-18] MEDS ORDERED: Magnesium Oxide 400 MG TABLET PO SCH (09:00)
[2019-07-18] MEDS ORDERED: levoFLOXacin 750 MG/150 ML 750 MG/150 ML BAG IVPB SCH (09:00)
[2019-07-18] MEDS: Nystatin SUSP 5 ML UD.LIQ PO SCH ×2 (09:25→12:42)
[2019-07-18 10:58] VITALS: BP 110/64
== END 2019-07-18 15:39 | DRG 592 ==
LOC: 3ANU → SUATTDRO 16:45
PROVIDERS: ADMIT Internal Medicine; ATTEND Internal Medicine

== ENCOUNTER 2019-07-29 22:53 | Inpatient (IN) ==
[2019-07-30 05:06] LABS: Hematocrit 26.4 % (35.3-44.9); Hemoglobin 7.9 g/dL (11.5-15.4); Mean Corpuscular HGB Conc 29.9 g/dL (31.6-35.5); Mean Corpuscular Hemoglobin 27.5 pg (28.0-33.3); Mean Platelet Volume 10.3 fL (9.4-12.4); Platelet Count 174 K/mcL (140-400); Red Blood Count 2.87 M/mcL (3.82-4.97); Red Cell Distribution Width 16.9 % (11.5-14.5); White Blood Count 7.7 K/mcL (4.3-11.1)
[2019-07-30 05:13] LABS: INR 1.1
[2019-07-30 05:33] LABS: Lymphocytes # 1.5 K/mcL (0.6-4.6); Monocytes # 0.2 K/mcL (0.0-1.3); Platelet Estimate Normal (Normal)
[2019-07-30] MEDS ORDERED: Naloxone 0.4 MG/ML INJ IVP PRN (05:38)
[2019-07-30 05:59] LABS: Alanine Aminotransferase 22 Units/L (7-52); Albumin 2.1 g/dL (3.5-5.7); Albumin/Globulin Ratio 0.7 (1.1-2.2); Alkaline Phosphatase 138 Units/L (34-104); Aspartate Amino Transferase 24 Units/L (13-39); BUN/Creatinine Ratio 55 (6-26); Bilirubin,Total 0.7 mg/dL (0.3-1.0); Blood Urea Nitrogen 41 mg/dL (8-23); Calcium 7.7 mg/dL (8.6-10.3); Chloride 111 mEq/L (98-107); Globulin 2.9 g/dL (2.4-3.5); Glucose 86 mg/dL (70-105); Osmolality,Calculated 295 (280-300); Potassium 4.5 mEq/L (3.5-5.1); Sodium 138 mEq/L (136-145); eGFR For African Americans > 60 (> 60); eGFR For Non-African Americans > 60 (> 60)
[2019-07-30 06:12] LABS: Carbon Dioxide 20 mEq/L (23-29)
[2019-07-30] MEDS: Pantoprazole 40 MG VIAL IVP SCH ×2 (12:23→17:33)
[2019-07-30] MEDS ORDERED: MOM Conc 10 ML UD.LIQ PO PRN (14:22)
[2019-07-30 16:16] LABS: Hematocrit 27.8 % (35.3-44.9); Hemoglobin 8.1 g/dL (11.5-15.4)
[2019-07-30] MEDS: Ipratropium/Albuterol Neb 3 ML IH SCH ×2 (16:34→21:42)
[2019-07-30] MEDS ORDERED: SODIUM CHLORIDE/NAHCO3/KCL/PEG 4,000 ML SOLN.RECON PO ONE (17:00)
[2019-07-31] MEDS: Mirtazapine 15 MG TABLET PO SCH ×2 (00:10→21:50)
[2019-07-31] MEDS: *HR* HYDROcodone/Acet 5/325 mg TABLET PO PRN ×3 (03:18→21:50)
[2019-07-31] MEDS: Ipratropium/Albuterol Neb 3 ML IH SCH ×4 (04:26→22:24)
[2019-07-31 05:53] LABS: Hematocrit 28.7 % (35.3-44.9); Hemoglobin 8.5 g/dL (11.5-15.4)
[2019-07-31] MEDS: Pantoprazole 40 MG VIAL IVP SCH (06:19)
[2019-07-31] MEDS ORDERED: Propofol 500 MG/50 ML INFUS..BTL ONE (10:32)
[2019-07-31] MEDS ORDERED: *HR* PHENYLEPHRINE 1,000 MCG/10 ML SYRINGE IVP ONE (10:32)
[2019-07-31] MEDS ORDERED: Lidocaine -MPF 2% 2 ML VIAL ONE (10:33)
[2019-07-31] MEDS: Magnesium Oxide 400 MG TABLET PO SCH (11:39)
[2019-07-31] MEDS: Furosemide 20 MG TABLET PO SCH (11:39)
[2019-07-31] MEDS: Sennosides/Docusate Sodium TABLET PO SCH (11:40)
[2019-08-01] MEDS: Ipratropium/Albuterol Neb 3 ML IH SCH ×4 (03:29→22:29)
[2019-08-01 05:33] LABS: Hematocrit 26.2 % (35.3-44.9); Hemoglobin 7.8 g/dL (11.5-15.4); Mean Corpuscular HGB Conc 29.8 g/dL (31.6-35.5); Mean Corpuscular Hemoglobin 27.1 pg (28.0-33.3); Platelet Count 201 K/mcL (140-400); Red Blood Count 2.88 M/mcL (3.82-4.97); Red Cell Distribution Width 17.2 % (11.5-14.5); White Blood Count 6.6 K/mcL (4.3-11.1)
[2019-08-01 05:50] LABS: BUN/Creatinine Ratio 35 (6-26); Blood Urea Nitrogen 24 mg/dL (8-23); Calcium 7.7 mg/dL (8.6-10.3); Carbon Dioxide 25 mEq/L (23-29); Chloride 109 mEq/L (98-107); Glucose 94 mg/dL (70-105); Osmolality,Calculated 292 (280-300); Potassium 3.6 mEq/L (3.5-5.1); Sodium 139 mEq/L (136-145); eGFR For African Americans > 60 (> 60); eGFR For Non-African Americans > 60 (> 60)
[2019-08-01] MEDS: Sennosides/Docusate Sodium TABLET PO SCH (08:51)
[2019-08-01] MEDS: Magnesium Oxide 400 MG TABLET PO SCH (08:51)
[2019-08-01] MEDS: Furosemide 20 MG TABLET PO SCH (08:51)
[2019-08-01] MEDS: Piperacillin/Tazobactam 3.375 GM in 0.9 % Sodium Chloride Mini Bag 100 ML IVPB SCH (17:04)
[2019-08-01] MEDS: Mirtazapine 15 MG TABLET PO SCH (21:26)
[2019-08-02] MEDS: Piperacillin/Tazobactam 3.375 GM in 0.9 % Sodium Chloride Mini Bag 100 ML IVPB SCH ×3 (00:50→16:13)
[2019-08-02] MEDS: Ipratropium/Albuterol Neb 3 ML IH SCH ×4 (04:08→22:07)
[2019-08-02] MEDS: *HR* HYDROcodone/Acet 5/325 mg TABLET PO PRN (07:34)
[2019-08-02] MEDS: Magnesium Oxide 400 MG TABLET PO SCH (10:33)
[2019-08-02] MEDS: Sennosides/Docusate Sodium TABLET PO SCH (10:33)
[2019-08-02] MEDS: Furosemide 20 MG TABLET PO SCH (10:33)
[2019-08-02] MEDS: Mirtazapine 15 MG TABLET PO SCH (20:54)
[2019-08-03] MEDS: Piperacillin/Tazobactam 3.375 GM in 0.9 % Sodium Chloride Mini Bag 100 ML IVPB SCH ×2 (00:19→08:27)
[2019-08-03] MEDS: Ipratropium/Albuterol Neb 3 ML IH SCH ×3 (03:47→15:10)
[2019-08-03] MEDS: Sennosides/Docusate Sodium TABLET PO SCH (08:26)
[2019-08-03] MEDS: Furosemide 20 MG TABLET PO SCH (08:27)
[2019-08-03] MEDS: Magnesium Oxide 400 MG TABLET PO SCH (08:27)
[2019-08-03 09:53] LABS: Hematocrit 27.3 % (35.3-44.9); Hemoglobin 8.2 g/dL (11.5-15.4)
[2019-08-03 15:44] VITALS: BP 125/63
== END 2019-08-03 20:37 | DRG 356 ==
LOC: 3ANU → SUATTDRO 07-31 10:03
PROVIDERS: ADMIT Internal Medicine; ATTEND Internal Medicine